=== PATIENT | female | born 1995 ===

== ENCOUNTER → 2017-06-01 | Emergency (ER) | payer OTHER ==
[~2017-06-01] VITALS: Ht 157.5 cm; Wt 45.4 kg
[~2017-06-01] MED LIST: OSEL75CA PO; PEPCID40 MG PO; TYLENOL325 MG; ZOFRAN4 MG PO
== END | disposition home or self-care (01) ==
LOC: ER 19:19
DX: O26.891 Other specified pregnancy related conditions, first trimester (principal); B34.9 Viral infection, unspecified; J09.X2 Influenza due to identified novel influenza A virus with other respiratory manifestations; Z3A.08 8 weeks gestation of pregnancy; R82.79 Other abnormal findings on microbiological examination of urine

== ENCOUNTER 2017-07-20 19:01 | Inpatient (IN) | payer OTHER ==
[~2017-07-20] VITALS: Ht 154.9 cm; Wt 45.4 kg
[2017-07-20] MEDS ORDERED: PRENATABS RX T1 EACH (20:14)
[2017-07-24] MEDS ORDERED: FERROUS SULFAT325 MG PO ×2 (11:20)
[2017-07-24] MEDS ORDERED: SURFAK240 M1 PO ×2 (11:20)
[2017-07-24] MEDS ORDERED: KEFLEX500 MG PO ×2 (11:20)
== END 2017-07-24 17:19 | disposition home or self-care (01) | DRG 781 ==
LOC: ER 19:01 → OB/GYN 07-21 13:25 → SEC-K 07-21 13:25 → OB/GYN 07-21 16:55
PROC: 4A1HXCZ Monitoring of Products of Conception, Cardiac Rate, External Approach (ICD-10-PCS; principal; 2017-07-21)
DX: O23.42 Unspecified infection of urinary tract in pregnancy, second trimester (principal); Z3A.16 16 weeks gestation of pregnancy; O23.02 Infections of kidney in pregnancy, second trimester

== ENCOUNTER 2017-07-25 15:51 | Emergency (ER) | payer OTHER ==
[~2017-07-25] VITALS: Ht 157.5 cm; Wt 45.4 kg
[~2017-07-25 15:51] MED LIST changes: +FERROUS SULFAT325 MG PO; +KEFLEX500 MG PO; +PRENATABS RX T1 EACH; +SURFAK240 M1 PO
== END 2017-07-25 20:29 | disposition home or self-care (01) ==
LOC: ER 15:51
DX: O20.8 Other hemorrhage in early pregnancy (principal); Z34.01 Encounter for supervision of normal first pregnancy, first trimester

== ENCOUNTER 2017-08-21 20:12 | Inpatient (IN) | payer OTHER ==
[~2017-08-21] VITALS: Ht 154.9 cm; Wt 48.5 kg
[2017-08-28] MEDS ORDERED: KEFLEX500 MG PO (16:39)
== END 2017-08-28 17:16 | DRG 781 ==
LOC: OBS/DEL 20:12 → OB/GYN 08-22 16:49 → LDR 08-22 16:49 → OB/GYN 08-23 13:22
PROC: BT43ZZZ Ultrasonography of Bilateral Kidneys (ICD-10-PCS; principal; 2017-08-22)
PROC: 4A1HXCZ Monitoring of Products of Conception, Cardiac Rate, External Approach (ICD-10-PCS; 2017-08-22)
DX: O23.03 Infections of kidney in pregnancy, third trimester (principal); B96.89 Other specified bacterial agents as the cause of diseases classified elsewhere; O23.42 Unspecified infection of urinary tract in pregnancy, second trimester; O99.012 Anemia complicating pregnancy, second trimester; Z3A.20 20 weeks gestation of pregnancy

== ENCOUNTER 2017-09-23 04:42 | Outpatient (CLI) | payer OTHER ==
[2017-09-23] MEDS ORDERED: FERROUS SULFAT325 MG PO (19:46)
[2017-09-23] MEDS ORDERED: CEFADROXIL500 MG PO (19:46)
[2017-09-23] MEDS ORDERED: NITROFURANTOIN100 MG PO (19:46)
== END 2017-09-23 20:11 | disposition home or self-care (01) ==
LOC: OBS/DEL 04:42
DX: O23.43 Unspecified infection of urinary tract in pregnancy, third trimester (principal); Z34.03 Encounter for supervision of normal first pregnancy, third trimester

== ENCOUNTER 2017-11-02 21:08 | Inpatient (IN) | payer OTHER ==
[~2017-11-02] VITALS: Ht 154.9 cm; Wt 115.0 kg
[~2017-11-02 21:08] MED LIST changes: +CEFADROXIL500 MG PO; +NITROFURANTOIN100 MG PO
[2017-11-02] MEDS ORDERED: PRENATAL TABLE1 EAC1 PO (22:48)
[2017-11-02] MEDS ORDERED: PANADOL EXTRA500 MG PO (22:50)
[2017-11-08] MEDS ORDERED: KEFLEX500 MG PO (08:54)
== END 2017-11-08 09:56 | DRG 781 ==
LOC: OBS/DEL 21:08 → LDR 11-03 17:28 → OB/GYN 11-05 14:09
PROC: BT4JZZZ Ultrasonography of Kidneys and Bladder (ICD-10-PCS; principal; 2017-11-03)
PROC: 4A1HXCZ Monitoring of Products of Conception, Cardiac Rate, External Approach (ICD-10-PCS; 2017-11-03)
PROC: BY4FZZZ Ultrasonography of Third Trimester, Single Fetus (ICD-10-PCS; 2017-11-04)
DX: O23.33 Infections of other parts of urinary tract in pregnancy, third trimester (principal); N13.39 Other hydronephrosis; B96.29 Other Escherichia coli [E. coli] as the cause of diseases classified elsewhere; O99.89 Other specified diseases and conditions complicating pregnancy, childbirth and the puerperium

== ENCOUNTER 2017-12-18 00:28 | Inpatient (IN) | payer OTHER ==
[~2017-12-18] VITALS: Ht 157.5 cm; Wt 54.9 kg
[~2017-12-18 00:28] MED LIST changes: +PANADOL EXTRA500 MG PO; +PRENATAL TABLE1 EAC1 PO
[2017-12-18] MEDS ORDERED: PRENATAL TABLE1 EAC1 PO (03:01)
[2017-12-20] MEDS ORDERED: PROFERRIN12 MG PO (19:27)
[2017-12-20] MEDS ORDERED: ALDOMET500 MG PO (19:28)
== END 2017-12-20 19:38 | DRG 775 ==
LOC: LDR 00:28 → OB/GYN 13:23
PROC: 10E0XZZ Delivery of Products of Conception, External Approach (ICD-10-PCS; principal; 2017-12-18)
PROC: 4A033R1 Measurement of Arterial Saturation, Peripheral, Percutaneous Approach (ICD-10-PCS; 2017-12-18)
PROC: 4A1HXCZ Monitoring of Products of Conception, Cardiac Rate, External Approach (ICD-10-PCS; 2017-12-18)
DX: O99.824 Streptococcus B carrier state complicating childbirth (principal); O14.14 Severe pre-eclampsia complicating childbirth; Z3A.37 37 weeks gestation of pregnancy; Z37.0 Single live birth